=== PATIENT | female | born 1965 | race Caucasian/White ===

== ENCOUNTER 2020-01-25 21:29 | Observation (INO) ==
[2020-01-25] MEDS ORDERED: DEXAMETHASONE SOD INJ 10 MG/ML VIAL IV ONE (22:00)
[2020-01-25] MEDS ORDERED: DEXAMETHASONE **PF** INJ 10 MG/ML VIAL ONE (22:32)
[2020-01-25 22:40] LABS: Basophils # (auto) 0.05 K/uL (0-0.2); Basophils % (auto) 0.4 %; Eosinophils # (auto) 0.17 K/uL (0-0.5); Eosinophils % (auto) 1.5 %; Hematocrit (blood only) 39.7 % (37-47); Hemoglobin 13.7 g/dL (12.0-16.0); Immature Granulocytes # (auto) 0.03 K/uL (0.00-0.02); Immature Granulocytes % (auto) 0.3 %; Lymphocytes # (auto) 3.29 K/uL (1.2-3.4); Lymphocytes % (auto) 28.5 %; Mean Corpuscular Hemoglobin 32.3 pg (25-34); Mean Corpuscular Hgb Conc 34.5 g/dL (32-36); Mean Corpuscular Volume 93.6 fL (80-100); Monocytes # (auto) 0.98 K/uL (0.11-0.59); Monocytes % (auto) 8.5 %; Neutrophils # (auto) 7.04 K/uL (1.4-6.5); Neutrophils % (auto) 60.8 %; Platelet Count 323 K/uL (130-400); RDW Coefficient of Variation 11.7 % (11.5-14.5); RDW Standard Deviation 39.9 fL (36.4-46.3); Red Blood Count 4.24 M/uL (4.2-5.4); White Blood Count 11.56 K/uL (4.8-10.8)
[2020-01-25 23:08] LABS: Albumin Globulin Ratio 1.1 (0.9-2); Albumin Level 4.1 gm/dl (3.4-5.0); BUN Creatinine Ratio 10.8 (10-20); Bilirubin,Total 0.4 mg/dl (0.2-1); Calcium 9.2 mg/dl (8.5-10.1); Creatinine Clr Calc Pharmacy 56.3 ml/min; Est GFR (African American) 92.6; Est GFR (Non-African American) 79.9; Globulin 3.9 gm/dl (2.5-4.0); Potassium 3.6 mmol/L (3.5-5.1)
[2020-01-25 23:10] LABS: Thyroid Stimulating Hormone 0.58 uIu/ml (0.300-4.500)
[2020-01-25] MEDS ORDERED: IOVERSOL 100ml IV ONE (23:42)
[2020-01-26] MEDS ORDERED: AMPICILLIN/SULBACTAM SOD 3,000 MG in 0.9 % SODIUM CHLORIDE 100 ML IV STA (00:37)
--- NOTE | 2020-01-26 00:50 | Emergency Department Note ---
ED Visit Note Patient was seen by our PA/CREEL CLERK. I was involved in the patient's care and did evaluate the patient myself. I was involved in the care throughout the ER stay. The patient has some swelling near her airway on CT. This may be angioedema from her JOHN inhibitor. She will be observed in the hospital and seen by ENT in the morning. She is being medicated with steroids. .
--- NOTE | 2020-01-26 01:06 | Emergency Department Note ---
History of Present Illness General Chief complaint: Throat Pain Stated complaint: THROAT IS SWELLING UP Time Seen by Provider: 01/25/20 21:50 Source: patient Mode of arrival: ambulatory Limitations: no limitations History of Present Illness Maximum Pain Intensity: 0 This patient is a 54-year-old female who presents to the emergency department for evaluation of throat swelling. The patient reports that the left side of her throat and tonsils feels swollen. She states that she woke up this morning and vomited. She states that since then, she has had a sensation of swelling in the left side of her throat. She tried ibuprofen without relief. Patient admits that over the past year, she has had similar symptoms of swelling in different parts of her mouth and throat. She states that the swelling sometimes affects her tongue, tonsils or throat. She does report some difficulty swallowing at this time and states she is able to swallow her saliva, but not much else. She denies any difficulty breathing. Patient does take lisinopril. She has been seen here once before for the same symptoms and took a course of steroids which helped. Home Medications Home Medications Medication Instructions Recorded Confirmed Type fluoxetine 20 mg PO QAM 01/25/20 01/25/20 History gabapentin 100 mg PO TID 01/25/20 01/25/20 History lamotrigine 75 mg PO AMHS 01/25/20 01/25/20 History lisinopril 10 mg PO QAM 01/25/20 01/25/20 History risperidone 0.25 mg PO QAM 01/25/20 01/25/20 History risperidone 1 mg PO HS 01/25/20 01/25/20 History Allergies Allergy/AdvReac Type Severity Reaction Status Date / Time No Known Allergies Allergy Verified 01/25/20 22:41 Past Med/Surg History Medical History Epilepsy Hypertension Social History Smoking Status: Current every day smoker Tobacco Type: E-cigarettes / Vaping Tobacco Cessation Education Requested by Patient: No Hx Alcohol Use: No Hx Substance Use: No Preferred Language: Paraguayan Communication Ability: Effective Ground [employer] Officer Required: No Beliefs That Will Affect Care: None Current Living Situation: Spouse and Family Other Information That Helps Us Care for You: No Feels Safe at Home: Yes Safety Concerns: Feels Safe At This Time Assistive Devices: Glasses Review of Systems A total of 10 systems reviewed and were otherwise negative Physical Exam Vital Signs Vital Signs - 24 hr 01/25/20 21:32 01/25/20 23:35 01/26/20 00:26 Temperature 36.5 C Temperature Source Oral Pulse Rate 89 Pulse Rate [Finger] 70 70 Respiratory Rate 18 21 15 Respiratory Effort / Characteristics Non-Labored Spontaneous Respiratory Depth Normal Normal Blood Pressure 136/82 Blood Pressure [Right Arm] 134/75 141/81 H Blood Pressure Mean 100 Blood Pressure Mean [Right Arm] 94 101 Blood Pressure Position [Right Arm] Lying Pulse Oximetry 95 96 96 Oxygen Delivery Method Room Air Room Air Sepsis Recent Fever Within 48 Hours No Sepsis New/Unexplained Change in Mental Status No Sepsis Action Taken by Nursing No Action Required 01/26/20 01:38 Temperature Temperature Source Pulse Rate Pulse Rate [Finger] 74 Respiratory Rate 16 Respiratory Effort / Characteristics Non-Labored Respiratory Depth Normal Blood Pressure Blood Pressure [Right Arm] 145/87 H Blood Pressure Mean Blood Pressure Mean [Right Arm] 106 Blood Pressure Position [Right Arm] Lying Pulse Oximetry 94 Oxygen Delivery Method Room Air Sepsis Recent Fever Within 48 Hours Sepsis New/Unexplained Change in Mental Status Sepsis Action Taken by Nursing VITALS: Vitals are noted on the nurse's note and reviewed by myself. GENERAL: This is a 54-year-old female, in no acute distress, well-developed well-nourished. SKIN: The skin was without rashes. EARS: External auditory canals clear, tympanic membranes pearly robert without erythema or effusion bilaterally. EYES: Pupils equal round and reactive to light and accommodation. MOUTH: Mucous membranes moist. There appears to be some mild edema of the left tonsillar pillar. Otherwise no swelling within the mouth. Airway appears patent. NECK: Supple without nuchal rigidity. No lymphadenopathy. No thyromegaly. HEART: Regular rate and rhythm without murmurs gallops or rubs. LUNGS: Clear to auscultation bilaterally without wheezes, rales or rhonchi. No retractions or accessory muscle use. ABDOMEN: Positive bowel sounds x 4. Soft, nontender to palpation. NEURO: Patient was alert and oriented to person place and time. Course Consultations Consultation #1: ZAHIRA [facility] Consultation #2: Dr. Nina [facility] hospitalist Administered Medications Ampicillin Sodium/Sulbactam Sodium 3,000 mg/ Sodium Chloride 108 mls @ 200 mls/hr IV Q6H HAYLEE; Protocol Stop: 02/05/20 05:59 Last Infusion: 01/26/20 05:32 Dose: 0 mls/hr Documented by: [id number] Admin: 01/26/20 04:54 Dose: 200 mls/hr Documented by: [id number] Sodium Chloride (Nss 1000ml) 1,000 mls @ 80 mls/hr IV .[id number] [facility] Stop: 02/25/20 03:36 Last Infusion: 01/26/20 06:15 Dose: 80 mls/hr Documented by: [id number] Infusion: 01/26/20 05:33 Dose: 80 mls/hr Documented by: [id number] Infusion: 01/26/20 05:01 Dose: 0 mls/hr Documented by: [id number] Admin: 01/26/20 03:51 Dose: 80 mls/hr Documented by: [id number] Nicotine (Nicotine 14 Mg/24 Hr Patch) 14 mg TD QAM [facility] Stop: 02/25/20 08:59 Last Admin: 01/26/20 04:54 Dose: 14 mg Documented by: [id number] Discontinued Medications Dexamethasone (Dexamethasone Sod Inj 10 Mg/Ml Vial) 10 mg IV NOW ONE Stop: 01/25/20 22:01 Last Admin: 01/25/20 22:34 Dose: Not Given Documented by: [id number] Dexamethasone Sodium Phosphate (Dexamethasone Pf Inj 10 Mg/Ml Vial) Confirm Administered Dose 10 mg .ROUTE .STK-MED ONE Stop: 01/25/20 22:33 Last Admin: 01/25/20 22:34 Dose: 10 mg Documented by: [id number] Ampicillin Sodium/Sulbactam Sodium 3,000 mg/ Sodium Chloride 108 mls @ 200 mls /hr IV NOW STA; Protocol Stop: 01/26/20 01:09 Last Infusion: 01/26/20 01:26 Dose: 0 mls/hr Documented by: [id number] Admin: 01/26/20 00:55 Dose: 200 mls/hr Documented by: [id number] Ioversol (Ioversol 100ml) 100 ml IV ONCE ONE Stop: 01/25/20 23:43 Last Admin: 01/25/20 23:43 Dose: 93 ml Documented by: [id number] Medical Decision Making Differential Diagnosis Differential diagnosis includes infection, retropharyngeal abscess, mass/malignancy, angioedema, among others. Home Medications Current Medication List: was personally reviewed by me Laboratory Data Attestation: I reviewed the patient's lab results. Result diagrams: 01/25/20 22:29 01/25/20 22:29 Lab Results 01/25/20 01/25/20 01/26/20 Range/Units 22:29 22: 01:36 WBC 11.56 H (4.8-10.8) K/uL RBC 4.24 (4.2-5.4) M/uL Hgb 13.7 (12.0-16.0) g/dL Hct 39.7 (37-47) % MCV 93.6 (80-100) fL MCH 32.3 (25-34) pg MCHC 34.5 (32-36) g/dL RDW Std Deviation 39.9 (36.4-46.3) fL RDW Coeff of Mili 11.7 (11.5-14.5) % Plt Count 323 (130-400) K/uL MPV 9.0 (7.4-10.4) fL Immature Gran % (Auto) 0.3 % Neut % (Auto) 60.8 % Lymph % (Auto) 28.5 % [place] % (Auto) 8.5 % Eos % (Auto) 1.5 % Baso % (Auto) 0.4 % Neut # (Auto) 7.04 H (1.4-6.5) K/uL Lymph # (Auto) 3.29 (1.2-3.4) K/uL [place] # (Auto) 0.98 H (0.11-0.59) K/uL Eos # (Auto) 0.17 (0-0.5) K/uL Baso # (Auto) 0.05 (0-0.2) K/uL Immature Gran # (Auto) 0.03 H (0.00-0.02) K/uL Sodium 142 (136-145) mmol/L Potassium 3.6 (3.5-5.1) mmol/L Chloride 107 (98-107) mmol/L Carbon Dioxide 29 (21-32) mmol/L Anion Gap 6.0 (3-11) BUN 9 (7-18) mg/dl Creatinine 0.84 (0.6-1.2) mg/dl Est Cr Clr Drug Dosing 56.3 ml/min Est GFR ( Amer) 92.6 Est GFR (Non-Af Amer) 79.9 BUN/Creatinine Ratio 10.8 (10-20) Glucose 100 H (70-99) mg/dl Calcium 9.2 (8.5-10.1) mg/dl Total Bilirubin 0.4 (0.2-1) mg/dl AST 12 L (15-37) U/L ALT 11 L (12-78) U/L Alkaline Phosphatase 106 (45-117) U/L Total Protein 8.0 (6.4-8.2) gm/dl Albumin 4.1 (3.4-5.0) gm/dl Globulin 3.9 (2.5-4.0) gm/dl Albumin/Globulin Ratio 1.1 (0.9-2) TSH 0.580 (0.300-4.500) uIu/ml COVID-19 Eval [facility] SARS-CoV-2, RNA, NAAT (NEGATIVE) 01/26/20 Range/Units 01:36 WBC (4.8-10.8) K/uL RBC (4.2-5.4) M/uL Hgb (12.0-16.0) g/dL Hct (37-47) % MCV (80-100) fL MCH (25-34) pg MCHC (32-36) g/dL RDW Std Deviation (36.4-46.3) fL RDW Coeff of Mili (11.5-14.5) % Plt Count (130-400) K/uL MPV (7.4-10.4) fL Immature Gran % (Auto) % Neut % (Auto) % Lymph % (Auto) % [place] % (Auto) % Eos % (Auto) % Baso % (Auto) % Neut # (Auto) (1.4-6.5) K/uL Lymph # (Auto) (1.2-3.4) K/uL [place] # (Auto) (0.11-0.59) K/uL Eos # (Auto) (0-0.5) K/uL Baso # (Auto) (0-0.2) K/uL Immature Gran # (Auto) (0.00-0.02) K/uL Sodium (136-145) mmol/L Potassium (3.5-5.1) mmol/L Chloride (98-107) mmol/L Carbon Dioxide (21-32) mmol/L Anion Gap (3-11) BUN (7-18) mg/dl Creatinine (0.6-1.2) mg/dl Est Cr Clr Drug Dosing ml/min Est GFR ( Amer) Est GFR (Non-Af Amer) BUN/Creatinine Ratio (10-20) Glucose (70-99) mg/dl Calcium (8.5-10.1) mg/dl Total Bilirubin (0.2-1) mg/dl AST (15-37) U/L ALT (12-78) U/L Alkaline Phosphatase (45-117) U/L Total Protein (6.4-8.2) gm/dl Albumin (3.4-5.0) gm/dl Globulin (2.5-4.0) gm/dl Albumin/Globulin Ratio (0.9-2) TSH (0.300-4.500) uIu/ml COVID-19 Eval Order SARS-CoV-2, RNA, NAAT NEGATIVE (NEGATIVE) Imaging Data Attestation: I personally reviewed and interpreted this imaging study as follows: Radiologist's Impression: CT NECK: Is marked asymmetric soft tissue swelling of the lower left hypopharynx with asymmetric loss of the left piriform sinus. There appears to be a developing fluid collection in the region measuring approximately 1.5 cm in diameter. There is some distortion of the left or epiglottic fold; however, the epiglottis does not appear diffusely thickened. There is no complete airway obstruction. Numerous complex low-density lesions are seen within the thyroid. The largest is in the left lobe measuring 1.9 cm. Recommend further evaluation with thyroid ultrasound if not already performed. Radiologist: Ede Morrison MD MDM Narrative The patient is a 54-year-old female who presents today complaining of swelling in her neck. Patient reports she has had these symptoms on and off for the past 1 year, but more severe today. On exam, her left tonsillar pillar appears edematous but otherwise her airway appears patent and I cannot see any obvious swelling. Labs revealed a mild leukocytosis of 11,000, no concerning electrolyte abnormalities. Patient was given a dose of IV Decadron. A CT scan of the neck was performed and showed asymmetric soft tissue swelling in the lower left hypopharynx with a possible developing fluid collection. There is no airway obstruction. A question whether this could be due to angioedema as patient is on lisinopril and has had symptoms intermittently for the past year. I did speak with ENT and they will evaluate and likely scope her tomorrow. The patient will be admitted to the hospitalist service. She was given a dose of IV Unasyn in case of infectious source. Impression & Plan Pharyngeal edema Discharge Plan Visit Data Chief Complaint: Throat Pain Stated Complaint: THROAT IS SWELLING UP ED Provider: Remy Rodriguez ED Midlevel Provider: Tori Garcia Discharge Problem: Pharyngeal edema Patient Disposition: Admitted As Inpatient Discharge Instructions Interventions: ED Discharge Assessment Last Done: 01/26/20 03:15
--- NOTE | 2020-01-26 02:03 | History & Physical Report ---
Date of Service January 26, 2020 Assessment & Plan (1) Throat swellin-year-old female with past medical history epilepsy, hypertension, back pain with sciatica, depression, paranoia presents with concerns of throat swelling. Throat swelling Admit to [facility] Soft tissue neck CT ([facility]): Marked asymmetric soft tissue swelling of the lower left hypopharynx with asymmetric loss of the left piriform sinus. There appears to be developing fluid collection in the region measuring approximately 1.5 cm in diameter. There is some distortion of the left or epiglottic fold, however the epiglottis does not appear diffusely thickened. There is no complete airway obstruction Without stridor or drooling currently. O2 sat 94% on RA. Patient is also without pain Likely etiology of JOHN inhibitor side effect. Lower concern for infectious etiology (epiglottitis, peritonsillar abscess) We will hold lisinopril 10 mg Patient with improvement after IV dexamethasone 10 mg x1. We will continue every 8 hours Continue IV Unasyn for now We will make patient n.p.o. IVF with NSS@80 mls/hr Appreciate ENT consult with plans for probably scope for today Preop COVID testing ordered Hypertension Holding lisinopril 10 mg. Consider alternative antihypertensive medication drug class moving forward Back pain with sciatica Continue gabapentin 100 mg 3 times daily Epilepsy Continue lamotrigine 75 mg twice daily Depression/paranoia Continue fluoxetine 20 mg, risperidone 0.25 mg a.m./1 mg at bedtime Thyroid abnormality Seen on soft tissue neck CT: Numerous complex low-density lesions are seen within the thyroid. The largest is in the left lobe measuring 1.9 cm Consider further evaluation with thyroid ultrasound moving forward TSH 0.58 WNL on admission FEN/GI: NSS@80. N.p.o. DVT prophylaxis: Lovenox SQ Full code Dispo: [facility] History of Present Illness Chief Complaint: Throat swelling Primary Care Provider: MANINDER Nieto 54-year-old female with past medical history epilepsy, hypertension, back pain with sciatica, depression, paranoia presents with concerns of throat swelling. Patient notes that she had had throat swelling for the past year. Patient was seen in our ED November 2018 for similar complaint and was given IV steroids with resolution of symptoms. Advised that this might be due to her JOHN inhibitor. Patient thought otherwise as she noted that she has been on this medication for a long time and thought that any potential side effects would have surfaced earlier, so she continued taking her JOHN inhibitor. Over the past few days deshawn matthews has noticed that her throat/tongue swelling have been worse than normal so she presented to ER. Patient notes that the swelling is intermittent, some days are better than others and some days are worse. Associated dry cough, rhinorrhea, voice changes and dysphagia at times. Patient otherwise denies any fevers, chills, sweats, nausea, vomiting, throat pain or tongue pain, chest pain, shortness of breath, dyspnea, wheezing, changes in any other medications or dosages. Patient with no other acute concerns or complaints. Pertinent labs: WBC 11.56. Otherwise largely unremarkable CBC CMP Soft tissue neck CT ([facility]): Marked asymmetric soft tissue swelling of the lower left hypopharynx with asymmetric loss of the left piriform sinus. There appears to be developing fluid collection in the region measuring approximately 1.5 cm in diameter. There is some distortion of the left or epiglottic fold, however the epiglottis does not appear diffusely thickened. There is no complete airway obstruction. ER course: IV Unasyn 3 g, IV dexamethasone 10 mg Social history: Patient denies any cigarette or tobacco use, however vapes nicotine. Social alcohol use. Denies any illicit drug use. Allergies Allergy/AdvReac Type Severity Reaction Status Date / Time No Known Allergies Allergy Verified 01/25/20 22:41 Home Medications Home Medications Medication Instructions Recorded Confirmed Type fluoxetine 20 mg PO QAM 01/25/20 01/25/20 History gabapentin 100 mg PO TID 01/25/20 01/25/20 History lamotrigine 75 mg PO AMHS 01/25/20 01/25/20 History lisinopril 10 mg PO QAM 01/25/20 01/25/20 History risperidone 0.25 mg PO QAM 01/25/20 01/25/20 History risperidone 1 mg PO HS 01/25/20 01/25/20 History Past Med/Surg History Medical History Epilepsy Hypertension Social History Smoking Status: Current every day smoker Tobacco Type: E-cigarettes / Vaping Tobacco Cessation Education Requested by Patient: No Hx Alcohol Use: No Hx Substance Use: No Preferred Language: [place]an Communication Ability: Effective [employer] Sales And Management Required: No Beliefs That Will Affect Care: None Current Living Situation: Spouse and Family Other Information That Helps Us Care for You: No Feels Safe at Home: Yes Safety Concerns: Feels Safe At This Time Assistive Devices: Glasses Review of Systems Review of Systems: All systems reviewed & are unremarkable except as noted in HPI & below Physical Exam Constitutional: WD/WN, vitals as above Eyes: PERRL, conjunctivae normal, anicteric sclerae ENMT: Mouth: no muffled voice and no trismus Throat: + uvula not midline (Deviated left) and no tonsil abnormality without any significant throat/ tongue swelling by time of my examination Respiratory: normal respiratory effort, lungs clear to auscultation Cardiovascular: RRR, no murmur, no edema Gastrointestinal (Abdomen): normal bowel sounds, soft, nontender, no hepatosplenomegaly Skin: no rashes, warm and dry Psychiatric: A+Ox3, euthymic affect Results & Data Results & Data ([facility]) Vital Signs (Past 12 Hours) Vital Signs Temp Pulse Pulse Resp BP BP Pulse Ox 01/26/20 00:26 70 15 141/81 H 96 01/25/20 23:35 70 21 134/75 96 01/25/20 21:32 36.5 C 89 18 136/82 95 Laboratory Results Laboratory Results - last 24 hr 01/25/20 01/25/20 01/26/20 22:29 22:29 01:36 WBC 11.56 H RBC 4.24 Hgb 13.7 Hct 39.7 MCV 93.6 MCH 32.3 MCHC 34.5 RDW Std Deviation 39.9 RDW Coeff of Mili 11.7 Plt Count 323 MPV 9.0 Immature Gran % (Auto) 0.3 Neut % (Auto) 60.8 Lymph % (Auto) 28.5 [place] % (Auto) 8.5 Eos % (Auto) 1.5 Baso % (Auto) 0.4 Neut # (Auto) 7.04 H Lymph # (Auto) 3.29 [place] # (Auto) 0.98 H Eos # (Auto) 0.17 Baso # (Auto) 0.05 Immature Gran # (Auto) 0.03 H Sodium 142 Potassium 3.6 Chloride 107 Carbon Dioxide 29 Anion Gap 6.0 BUN 9 Creatinine 0.84 Est Cr Clr Drug Dosing 56.3 Est GFR ( Amer) 92.6 Est GFR (Non-Af Amer) 79.9 BUN/Creatinine Ratio 10.8 Glucose 100 H Calcium 9.2 Total Bilirubin 0.4 AST 12 L ALT 11 L Alkaline Phosphatase 106 Total Protein 8.0 Albumin 4.1 Globulin 3.9 Albumin/Globulin Ratio 1.1 TSH 0.580 COVID-19 Eval Order Covid19 [facility] SARS-CoV-2, RNA, NAAT 01/26/20 01:36 WBC RBC Hgb Hct MCV MCH MCHC RDW Std Deviation RDW Coeff of Mili Plt Count MPV Immature Gran % (Auto) Neut % (Auto) Lymph % (Auto) [place] % (Auto) Eos % (Auto) Baso % (Auto) Neut # (Auto) Lymph # (Auto) [place] # (Auto) Eos # (Auto) Baso # (Auto) Immature Gran # (Auto) Sodium Potassium Chloride Carbon Dioxide Anion Gap BUN Creatinine Est Cr Clr Drug Dosing Est GFR ( Amer) Est GFR (Non-Af Amer) BUN/Creatinine Ratio Glucose Calcium Total Bilirubin AST ALT Alkaline Phosphatase Total Protein Albumin Globulin Albumin/Globulin Ratio TSH COVID-19 Eval Order SARS-CoV-2, RNA, NAAT Pending Code Status & VTE Plan Code Status Full Supervising Physician Co-Signing Physician Notes Attending addendum: I have physically seen this patient, have supervised the medical residents activities, and agree with the H&P unless as otherwise noted. Assessment and Plan: Throat swelling- Abnormal CT with concern regarding asymmetric soft tissue swelling of lower left hypopharynx and asymmetric loss of left piriform sinu -n.p.o. Continue IV Decadron 6 mg every 8 hours Continue Unasyn 1.5 g IV every 6 hours NSS 80 mils per hour ENT to see in a.m. Hold JOHN inhibitor Remaining orders and notations as noted Resident Activity Tracking Resident Involvement: Resident Care Provided Care Provided: Adult Hospital Medicine
[2020-01-26] MEDS ORDERED: ALUMINUM/MAGNESIUM SUSP 30 ML UDC PO PRN (03:37)
[2020-01-26] MEDS ORDERED: ONDANSETRON INJ 2 MG/ML 2 ML VIAL IV PRN (03:37)
[2020-01-26] MEDS ORDERED: ACETAMINOPHEN 325 MG TAB PO PRN (03:37)
[2020-01-26] MEDS ORDERED: INFLUENZA ADMINISTRATION CHARGE ONE (03:51)
[2020-01-26] MEDS: SODIUM CHLORIDE 0.9% 1000ML 1,000 ML IV SCH ×2 (03:51→15:46)
[2020-01-26] MEDS ORDERED: INFLUENZA VIRUS QUAD VACCINE 0.5 ML SYR IM ONE (03:51)
[2020-01-26] MEDS: AMPICILLIN/SULBACTAM SOD 3,000 MG in 0.9 % SODIUM CHLORIDE 100 ML IV SCH ×3 (04:54→17:58)
[2020-01-26] MEDS: NICOTINE 14 MG/24 HR PATCH TD SCH (04:54)
[2020-01-26] MEDS: dexAMETHasone 10 MG in DEXTROSE 5% 25 ML IV SCH ×3 (06:32→23:11)
--- NOTE | 2020-01-26 07:00 | CT Scan Report ---
CT OF THE NECK WITH IV CONTRAST CLINICAL HISTORY: neck/throat swelling COMPARISON STUDY: No previous studies for comparison. TECHNIQUE: Following IV administration of Optiray-320, helical axial images of the neck were obtaine d. Sagittal and coronal reconstructions were viewed. Automated exposure control was utilized for th e study. A dose lowering technique was utilized adhering to the principles of ALARA. CT DOSE: 302.51 mGy.cm FINDINGS: Lung apices are clear. There is mild paraseptal emphysema. Multiple thyroid nodules measur e up to 2.1 cm. The parotid and submandibular glands are normal. Visualized portions of the intracran ial contents are unremarkable. Mastoid air cells are clear. The sinuses are clear. Note is made of mo derate asymmetric mucosal hypertrophy and edema of the left aspect of the hypopharynx which predomina ntly involves the left aryepiglottic fold and results in effacement of the left piriform sinus. There is mild airway narrowing. Epiglottis is normal. Adjacent edema, including prevertebral edema, is not ed. No rim-enhancing fluid collection is suggest an abscess. There is no soft tissue gas. Major vascu lature of the neck is patent. IMPRESSION: 1. Moderate asymmetric mucosal edema and hypertrophy of the left hypopharynx predominantly involving the left aryepiglottic fold with effacement of the left piriform sinus and mild airway narrowing. Adj acent edema, including prevertebral edema. No rim-enhancing fluid collection to suggest an abscess. N ormal epiglottis. No soft tissue gas. Differential considerations include an infectious process. [place] oedema could have this appearance. Close clinical follow-up is recommended given the airway narrowing . Findings discussed with Tori Garcia at time of dictation. A follow-up CT in one month is recommende d to exclude the much less likely possibility of an underlying neoplasm. 2. Multiple thyroid nodules. Nonemergent thyroid ultrasound is recommended. ACT 112: Negative or not required by law. Electronically signed by: Sarabjit Berkowitz M.D. 01/26/2020 6:59 AM
[2020-01-26 07:28] LABS: Basophils # (auto) 0.01 K/uL (0-0.2); Basophils % (auto) 0.1 %; Hematocrit (blood only) 38.5 % (37-47); Hemoglobin 12.6 g/dL (12.0-16.0); Lymphocytes # (auto) 0.48 K/uL (1.2-3.4); Lymphocytes % (auto) 7.2 %; Mean Corpuscular Hemoglobin 30.3 pg (25-34); Mean Corpuscular Hgb Conc 32.7 g/dL (32-36); Mean Corpuscular Volume 92.5 fL (80-100); Mean Platelet Volume 8.9 fL (7.4-10.4); Monocytes # (auto) 0.12 K/uL (0.11-0.59); Monocytes % (auto) 1.8 %; Neutrophils # (auto) 6.09 K/uL (1.4-6.5); Neutrophils % (auto) 90.9 %; Platelet Count 302 K/uL (130-400); RDW Coefficient of Variation 11.7 % (11.5-14.5); RDW Standard Deviation 39.8 fL (36.4-46.3); Red Blood Count 4.16 M/uL (4.2-5.4)
[2020-01-26 07:37] LABS: Prothrombin Time 10.6 Seconds (9.0-12.0)
[2020-01-26 07:58] LABS: BUN Creatinine Ratio 16.8 (10-20); Calcium 9.5 mg/dl (8.5-10.1); Est GFR (African American) 116.6; Est GFR (Non-African American) 100.6; Potassium 3.8 mmol/L (3.5-5.1)
[2020-01-26] MEDS: lamoTRIgine 25 MG TAB PO SCH ×2 (08:16→20:59)
[2020-01-26] MEDS: GABAPENTIN 100 MG CAP PO SCH ×3 (08:17→21:00)
[2020-01-26] MEDS: FLUOXETINE HCL 20 MG CAP PO SCH (08:17)
[2020-01-26] MEDS: risperiDONE 0.5 MG TABLET PO SCH (08:17)
[2020-01-26] MEDS: ENOXAPARIN INJ 40 MG/0.4 ML SYR SQ SCH (08:18)
--- NOTE | 2020-01-26 09:45 | Hospitalist Progress Note ---
Date of Service January 26, 2020 Assessment & Plan (1) Throat swelling: Altagracia Shepherd is a 54-year-old female with a notable PMH of HTN on lisinopril x 15 years, epilepsy, back pain with sciatica, and depression who presented to [facility] for evaluation of throat swelling, thought to be primarily ACEI-related angioedema in origin. Throat swelling -- Clinically Resolved - Has not demonstrated stridor/drooling throughout her stay -- continues to be hemodynamically stable with most recent vitals showing RR 16 w/ SpO2 97% on RA - Clinically, patient reports several days of increased swelling in the back of her throat and base of her tongue, associated with some difficulty breathing, dysphagia, and general discomfort - Of note, she was seen in the ED back in 11/2019 for a similar complaint, and experienced resolution of her symptoms s/p IV steroids - CT of the Soft Tissue of Neck: demonstrated moderate mucosal edema of the left hypopharynx associated with a [id number]-[id number] fluid collection suggestive of abscess vs. angioedema. No epiglottitis or tissue gas. - Given lack of infectious/inflammatory symptoms in her history, h/o lisinopril use, fast response to IV steroids, suspect this is ACEI-related angioedema - Lower concern for infectious etiology (epiglottitis, peritonsillar abscess) given normal white count, afebrile state, history, and physical exam - Counselled patient that, despite being on lisinopril for >10 years, etiology of this appearing at any time while medicated is well described - Discontinue home lisinopril 10mg PO daily - Seen by ENT: recommended f/u in 2-3 weeks as outpatient with ENT - Discontinued IV unasyn, as this does not seem to be an infectious etiology - Continue dexamethasone 10mg IV q8h - Continue through tonight -- anticipate d/c tomorrow with PO steroid taper Hypertension - BPs since admission (off lisinopril) have been 130-140s/70-80s - Discontinue home lisinopril as above - Since BPs have been relatively well controlled during stay here, will d/c without new anti-HTN medication -- can consider adding ARB, other anti-HTN at PCP f/u pending BPs Back pain with sciatica Continue gabapentin 100 mg 3 times daily Epilepsy Continue lamotrigine 75 mg twice daily Depression/paranoia Continue fluoxetine 20 mg, risperidone 0.25 mg a.m./1 mg at bedtime Thyroid abnormality Seen on soft tissue neck CT: Numerous complex low-density lesions are seen within the thyroid. The largest is 2.1cm. Consider further evaluation with thyroid ultrasound in the outpatient setting TSH 0.58 WNL on admission FEN/GI: Full diet, discontinued mIVF DVT prophylaxis: Lovenox SQ Dispo: MedSurg Code: FULL CODE Admission and Anticipated Discharge Date Admission Date: January 26, 2020 Supervising Physician Co-Signing Physician Notes I personally examined the patient and verified all lamb points of history and exam, discussed case, and agree with decision making with Dr Campo. feeling nearly totally back to normal. no f/c/s. happened before and resolved w steroids vitals noted nad heent nc at mmm breathing unalbored no stridor no accessory muscles skin no rashes no pallor throat swelling - almost certainly angioedema mechanism given no other s/s infection and rapid resolution. hold abx for now. follow into tomorrow - continue steroids, stop ACEi HTN - she notes that she was not really sure if she's ever been worse than borderline HTN - and when we discussed class switch to ARB - she wondered about observing off all meds and seeing what her numbers run. has cuff at home, willing to check frequently. certainly seems reasonable. follow into tomorrow, continue steroids, as long as still doing well, anticipate home tomorrow. otherwise as above Subjective No acute events since admission last night. This morning, patient reports feeling "about 90% back to baseline", denying any shortness of breath or trouble breathing. She denies any associated chest pains or palpitations. On review of her history, she notes that she is always had some level of swelling in her throat and tongue, but is never caused any problems with breathing. She reports being up in to her normal health up until about yesterday, when she noticed that her throat and tongue were getting a lot more swollen, and she was worried about having difficulty breathing. Further, she does endorse vomiting once yesterday after a meal, but has not experienced this since. Denies any fevers, chills, or night sweats. Review of Systems Constitutional: no fever and no chills Respiratory: no cough and no dyspnea Cardiovascular: no chest pain and no palpitations Gastrointestinal: as per Subjective / HPI; no abdominal pain, no nausea and no vomiting Neurologic: as per Subjective / HPI Physical Exam Constitutional: Well-appearing 54-year-old female who is lying back in her hospital bed, sleeping prior to my entry. She speaks in full sentences, without any respiratory distress. No acute distress. ENMT: Visual examination does not reveal any swelling on the face. Examination of the mouth and oropharynx reveals a midline uvula without tonsillar swelling or appreciable edema. No plaques or lesions observed. Palpation of the neck does not reveal any lymphadenopathy or concerning bumps or rashes. Respiratory: Good respiratory effort with symmetric expansion of the chest. No use of accessory muscles. No stridor. Lungs are clear to auscultation bilaterally without any crackles or wheezes. Cardiovascular: Normal rate and regular rhythm, S1 and S2 are present without any murmurs rubs or gallops. Gastrointestinal (Abdomen): Normoactive bowel sounds. Abdomen is soft, nontender, nondistended. No appreciable organomegaly. Results & Data Results & Data ([facility]) Vital Signs (Past 12 Hours) Vital Signs Temp Pulse Resp BP Pulse Ox 01/26/20 08:02 36.7 C 79 16 147/78 H 97 01/26/20 03:38 36.8 C 79 20 123/72 94 01/26/20 02:50 73 16 117/69 01/26/20 01:38 74 16 145/87 H 94 01/26/20 00:26 70 15 141/81 H 96 01/25/20 23:35 70 21 134/75 96 Resident Activity Tracking Resident Involvement: Resident Care Provided Care Provided: Adult Hospital Medicine
--- NOTE | 2020-01-26 12:23 | ENT Consultation ---
Date of Consultation January 26, 2020 Assessment & Plan (1) Throat swelling: No concern for airway compromise at this time, woudl recommend 24 hours of IV antibiotics and IV steroids. Can be discharged on oral antibiotic and steroid taper. I will see the patient in follow-up in 2-3 weeks in my office. Present on Admission?: Yes (2) Pharyngeal edema: see above Present on Admission?: Yes History of Present Illness Reason for Consultation: asymmetry on CT scan Attending Physician: Cuco Rogers DO History of Present Illness Patient states has had dysphagia and left ear pain on and off for the past year. Denies fevers. Prior ot this episode patient had an episode of violent emesis. Patient is past smoker. On antacid fro GERD. No dyspnea, no coughing up blood. No unexplained weight loss. Allergies Allergy/AdvReac Type Severity Reaction Status Date / Time No Known Allergies Allergy Verified 01/25/20 22:41 Home Medications Home Medications Medication Instructions Recorded Confirmed Type fluoxetine 20 mg PO QAM 01/25/20 01/25/20 History gabapentin 100 mg PO TID 01/25/20 01/25/20 History lamotrigine 75 mg PO AMHS 01/25/20 01/25/20 History lisinopril 10 mg PO QAM 01/25/20 01/25/20 History risperidone 0.25 mg PO QAM 01/25/20 01/25/20 History risperidone 1 mg PO HS 01/25/20 01/25/20 History Patient History Medical History Epilepsy Hypertension Social History Smoking Status: Current every day smoker Tobacco Type: E-cigarettes / Vaping Tobacco Cessation Education Requested by Patient: No Hx Alcohol Use: No Hx Substance Use: No Preferred Language: Zambian Communication Ability: Effective Asic Engineer Required: No Beliefs That Will Affect Care: None Current Living Situation: Spouse and Family Other Information That Helps Us Care for You: No Feels Safe at Home: Yes Safety Concerns: Feels Safe At This Time Assistive Devices: Glasses Review of Systems Review of Systems: All systems reviewed & are unremarkable except as noted in HPI & below Physical Exam Physical Exam: No stridor. Neck without any LAD. Oral cavity wnl Procedure: Flexible nasopharyngoscopy was performed. Nasopharynx and oropharynx wnl. Diffuse erythema of posterior oropharynx and artenoids. Airway patent, no masses or lesions seen. Results & Data ([facility]) Vital Signs (Past 12 Hours) Vital Signs Temp Pulse Resp BP Pulse Ox 01/26/20 08:02 36.7 C 79 16 147/78 H 97 01/26/20 03:38 36.8 C 79 20 123/72 94 01/26/20 02:50 73 16 117/69 01/26/20 01:38 74 16 145/87 H 94 01/26/20 00:26 70 15 141/81 H 96
[2020-01-26] MEDS: PANTOprazole 40 MG TAB PO SCH (17:58)
--- NOTE | 2020-01-26 20:07 | Billing Data ---
Date of Service January 26, 2020 Coding Level of Care Code 56541 Subseq Hosp Care Lvl 3
[2020-01-26] MEDS ORDERED: risperiDONE 1 MG TABLET PO SCH (21:00)
--- NOTE | 2020-01-26 21:44 | Billing Data ---
Date of Service January 26, 2020 Coding Level of Care Code 29750 Initial Inpt Care Lvl 3
[2020-01-27] MEDS: dexAMETHasone 10 MG in DEXTROSE 5% 25 ML IV SCH (06:08)
--- NOTE | 2020-01-27 07:21 | Discharge Summary ---
Date of Service January 27, 2020 Admission HPI Per Admitting Provider 54-year-old female with past medical history epilepsy, hypertension, back pain with sciatica, depression, paranoia presents with concerns of throat swelling. Patient notes that she had had throat swelling for the past year. Patient was seen in our ED November 2018 for similar complaint and was given IV steroids with resolution of symptoms. Advised that this might be due to her JOHN inhibitor. Patient thought otherwise as she noted that she has been on this medication for a long time and thought that any potential side effects would have surfaced earlier, so she continued taking her JOHN inhibitor. Over the past few days patient has noticed that her throat/tongue swelling have been worse than normal so she presented to ER. Patient notes that the swelling is intermittent, some days are better than others and some days are worse. Associated dry cough, rhinorrhea, voice changes and dysphagia at times. Patient otherwise denies any fevers, chills, sweats, nausea, vomiting, throat pain or tongue pain, chest pain, shortness of breath, dyspnea, wheezing, changes in any other medications or dosages. Patient with no other acute concerns or complaints. Pertinent labs: WBC 11.56. Otherwise largely unremarkable CBC CMP Soft tissue neck CT ([facility]): Marked asymmetric soft tissue swelling of the lower left hypopharynx with asymmetric loss of the left piriform sinus. There appears to be developing fluid collection in the region measuring approximately 1.5 cm in diameter. There is some distortion of the left or epiglottic fold, however the epiglottis does not appear diffusely thickened. There is no complete airway obstruction. ER course: IV Unasyn 3 g, IV dexamethasone 10 mg Social history: Patient denies any cigarette or tobacco use, however vapes nicotine. Social alcohol use. Denies any illicit drug use. Admission Exam Per Admitting Provider Constitutional: WD/WN, vitals as above Eyes: PERRL, conjunctivae normal, anicteric sclerae ENMT: Mouth: no muffled voice and no trismus Throat: + uvula not midline (Deviated left) and no tonsil abnormality without any significant throat/tongue swelling by time of my examination Respiratory: normal respiratory effort, lungs clear to auscultation Cardiovascular: RRR, no murmur, no edema Gastrointestinal (Abdomen): normal bowel sounds, soft, nontender, no hepatosplenomegaly Skin: no rashes, warm and dry Psychiatric: A+Ox3, euthymic affect Principal Diagnosis ACEI-induced angioedema (from lisinopril) Discharge Exam Constitutional Well-appearing 54-year-old female who is lying back in her hospital bed, speaking in full sentences during our conversation. She is in no acute distress. ENMT Visual observation reveals no swelling on the face. Examination of the mouth and oropharynx MRI liver reveals no swelling or lesions. The uvula is midline. Palpation of the neck does not reveal any lymphadenopathy or structural deformities. Respiratory Respiratory effort with symmetric expansion of the chest, no use of accessory muscles. She speaks in full sentences. Lungs are clear to auscultation bilaterally without any crackles or wheezes. Cardiovascular Normal rate and regular rhythm, S1 and S2 are present without any murmurs rubs or gallops. Discharge Data Allergies Allergy/AdvReac Type Severity Reaction Status Date / Time lisinopril Allergy Severe Angioedema Verified 01/27/20 07:28 of the tongue and throat Consultations 01/26/20 01:29 ED Decision to Admit Stat 01/26/20 03:37 Consult Otolaryngology (Head and Neck) Routine Ordered Studies 01/25/20 22:00 CT soft tissue neck w con Urgent Hospital Course (1) Throat swelling: Outpatient Follow-Up Items - Home lisinopril was discontinued during this stay -- patient has been instructed to monitor BPs at home and bring readings to f/u visit. Consider starting new anti-HTN agent vs. control with lifestyle mods - F/u with thyroid nodules with outpatient US Altagracia Shepherd is a 54-year-old female with a notable PMH of HTN on lisinopril x 15 years, epilepsy, back pain with sciatica, and depression who presented to [facility] for evaluation of throat swelling, thought to be primarily ACEI-related angioedema in origin. Throat swelling -- Clinically Resolved - Clinically, patient reports several days of increased swelling in the back of her throat and base of her tongue, associated with some difficulty breathing, dysphagia, and general discomfort - Of note, she was seen in the ED back in 11/2019 for a similar complaint, and experienced resolution of her symptoms s/p IV steroids - Has not demonstrated stridor/drooling throughout her stay -- continues to be hemodynamically stable with most recent vitals showing RR 16 w/ SpO2 97% on RA - CT of the Soft Tissue of Neck: demonstrated moderate mucosal edema of the left hypopharynx associated with a ryh-qwe-aabkbvvzzy fluid collection suggestive of abscess vs. angioedema. No epiglottitis or tissue gas. - Given lack of infectious/inflammatory symptoms in her history, h/o lisinopril use, fast response to IV steroids, suspect this is ACEI-related angioedema - Lower concern for infectious etiology (epiglottitis, peritonsillar abscess) given normal white count, afebrile state, history, and physical exam - Counselled patient that, despite being on lisinopril for >10 years, etiology of this appearing at any time while medicated is well described - Discontinue home lisinopril 10mg PO daily - Seen by ENT: recommended f/u in 2-3 weeks as outpatient with ENT - Discontinued IV unasyn, as this does not seem to be an infectious etiology - Continue dexamethasone 10mg IV q8h - Discharged with steroid taper Hypertension - BPs since admission (off lisinopril) have been 130-140s/70-80s - Discontinue home lisinopril as above - Patient to do at-home BP monitoring at discharge for PCP f/u - After discussing with patient, will not d/c with new anti-HTN medication -- should consider reintroducing ARB, other anti-HTN at PCP f/u pending BPs Back pain with sciatica Continue gabapentin 100 mg 3 times daily Epilepsy Continue lamotrigine 75 mg twice daily Depression/paranoia Continue fluoxetine 20 mg, risperidone 0.25 mg a.m./1 mg at bedtime Thyroid abnormality Seen on soft tissue neck CT: Numerous complex low-density lesions are seen within the thyroid. The largest is 2.1cm. Consider further evaluation with thyroid ultrasound in the outpatient setting TSH 0.58 WNL on admission FEN/GI: Full diet, discontinued mIVF DVT prophylaxis: Lovenox SQ Dispo: MedSurg Code: FULL CODE Total Time Total Time Spent Total Time Spent (In Minutes): 2 nights Total Time Includes: Examination of the Patient, Discharge Planning, Medication Reconciliation, Communication With Other Providers and Other Discharge Plan Discharge Items Patient Disposition: Home - Self-Care Reason For Visit: THROAT SWELLING Discharge Diagnosis: angioedema, likely lisinopril-induced (ACEI-induced angioedema) Activity: Per Instructions section Non-emergency contact: Primary Care Provider Call non-emergency contact if: your symptoms worsen, your pain is worsening and your temperature is above 101.5 Follow-up/Referrals: Mary Cruz CRNP [Primary Care Provider] - 02/01/20 8:40 am Diet: Regular Addtl Attending Provider Instructions: You were seen at [facility] from 01/24 - 01/26 for evaluation of throat swelling. During your stay, you underwent a CT scan which demonstrated localized swelling at the back of your throat -- consistent with your symptoms. Your laboratories and symptoms were not reflective of an underlying infectious cause to this swelling. You were started on IV steroids to reduce the swelling and, initially out of caution, IV antibiotics. You demonstrated excellent response within a short amount of time, noting significant reduction of the swelling. Given your continued lack of infectious symptoms during your stay, the primary cause of this swelling was not thought to be infectious - so your antibiotics were discontinued. We discussed that the most likely cause of this swelling was likely from your lisinopril. In some individuals with genetic susceptibility, JOHN inhibitors (the class of blood pressure medications of which lisinopril belongs) can cause significant swelling ("angioedema") that responds well to steroids; this can occur at any time while on the medication, regardless of how long a person is on them. During your stay, your lisinopril was discontinued. You were discharged with a steroid taper to further control any residual swelling. You are to follow-up with your primary care physician within a few weeks of discharge to discuss this visit AND determine whether or not you should be restarted on a new blood pressure agent. In the interim, we discussed taking your blood pressure at home and recording the results for your PCP to evaluate. If you experience any new swelling, shortness of breath, or trouble swallowing - or other concerning symptoms - you should immediately seek medical attention, including calling 911 or reporting to the emergency room. Pending Studies at Discharge: No Stand-Alone Forms: My [facility], Smoking Cessation Medications and DC Order Prescriptions: New dexamethasone 6 mg tablet 6 mg PO UD Qty: 9 RF: 0 Continued risperidone 0.25 mg tablet 0.25 mg PO QAM RF: 0 lamotrigine 25 mg tablet 75 mg PO AMHS RF: 0 gabapentin 100 mg capsule 100 mg PO TID RF: 0 fluoxetine 20 mg capsule 20 mg PO QAM RF: 0 risperidone 1 mg tablet 1 mg PO HS RF: 0 Discontinued lisinopril 10 mg tablet 10 mg PO QAM RF: 0 Discharge Orders: Discharge Order (Routine); Ordered 01/27/20 Ordered By: Cuco Campo Admission Data Admit Date/Time: 01/26/20 02:10 Attending Provider: Cuco Rogers Admit Provider: Fredy Gomez Primary Care Provider: Mary Cruz Other Providers: Jason Nina Mara C. Other Interventions: Discharge Summary Assessment (RN) Last Done: 01/27/20 13:25 Supervising Physician Co-Signing Physician Notes I personally examined the patient and verified all lmab points of history and exam, discussed case, and agree with decision making with Dr Campo. feeling fine anxious to go home vitals noted nad heent nc at mmm breathing unlabored no stridor no accessory muscles skin no rashes no pallor throat swelling - almost certainly angioedema mechanism given no other s/s infection and rapid resolution. doing well off ABX. stop ACEi. safe for home - PO steroids HTN - she notes that she was not really sure if she's ever been worse than borderline HTN - and when we discussed class switch to ARB - she wondered about observing off all meds and seeing what her numbers run. has cuff at home, willing to check frequently. certainly seems reasonable. if BP requires treatment - would strongly consider ARB. to f/u PCP ~2wks stable for home otherwise as above Resident Activity Tracking Resident Involvement: Resident Care Provided Care Provided: Adult Hospital Medicine
[2020-01-27] MEDS: FLUOXETINE HCL 20 MG CAP PO SCH (08:03)
[2020-01-27] MEDS: GABAPENTIN 100 MG CAP PO SCH ×2 (08:03→13:36)
[2020-01-27] MEDS: risperiDONE 0.5 MG TABLET PO SCH (08:03)
[2020-01-27] MEDS: lamoTRIgine 25 MG TAB PO SCH (08:03)
[2020-01-27] MEDS: ENOXAPARIN INJ 40 MG/0.4 ML SYR SQ SCH (08:03)
[2020-01-27] MEDS: PANTOprazole 40 MG TAB PO SCH (08:03)
[2020-01-27] MEDS: NICOTINE 14 MG/24 HR PATCH TD SCH (08:04)
--- NOTE | 2020-01-27 19:18 | Billing Data ---
Date of Service January 27, 2020 Coding Level of Care Code 01288 OBS Care - Discharge
== END 2020-01-27 13:48 | disposition home or self-care (01) ==
LOC: 3W 21:29 → ED 21:29 → SUATTDRO 01-26 02:10 → 3W 01-26 03:15
DX: G40.909 Epilepsy, unspecified, not intractable, without status epilepticus; F32.9 Major depressive disorder, single episode, unspecified; Z79.899 Other long term (current) drug therapy; M54.40 Lumbago with sciatica, unspecified side; F17.290 Nicotine dependence, other tobacco product, uncomplicated; Z20.828 Contact with and (suspected) exposure to other viral communicable diseases; J39.2 Other diseases of pharynx; R07.0 Pain in throat; I10 Essential (primary) hypertension; T78.3XXA Angioneurotic edema, initial encounter